=== PATIENT | male | born 1965 | race Caucasian/White ===

== ENCOUNTER 2024-10-03 21:10 | Inpatient (IN) | payer MEDICAID, OTHER ==
[~2024-10-03] VITALS: Ht 172.7 cm; Wt 93.0 kg
[2024-10-04] MEDS ORDERED: CARV3.122 PO (00:55)
[2024-10-04] MEDS ORDERED: IBUP-2314 PO (00:55)
[2024-10-04] MEDS ORDERED: METF-494 PO (00:55)
[2024-10-04] MEDS ORDERED: OLAN10TA73 PO (00:55)
[2024-10-04] MEDS ORDERED: CEPH500T PO (00:55)
[2024-10-04] MEDS ORDERED: PANT40TA2 PO (00:55)
[2024-10-04] MEDS ORDERED: LOPE2TAB25 PO (00:55)
[2024-10-04] MEDS ORDERED: ATOR40TA PO (00:55)
[2024-10-04] MEDS ORDERED: LURA20TA PO (00:55)
[2024-10-04] MEDS ORDERED: LINA5TAB PO (00:55)
[2024-10-04] MEDS ORDERED: DOXY-226 PO (00:55)
[2024-10-04] MEDS ORDERED: FOLI1TAB94 PO (00:55)
[2024-10-04] MEDS ORDERED: FERR220S16 PO (00:55)
[2024-10-04] MEDS ORDERED: CHLO100T17 PO (00:55)
[2024-10-04] MEDS ORDERED: GABA300C PO (00:55)
[2024-10-04] MEDS ORDERED: ESCI-9 PO (00:55)
[2024-10-04] MEDS ORDERED: FURO40TA5 PO (00:55)
[2024-10-04] MEDS ORDERED: CYAN500T9 PO (00:55)
[2024-10-04 00:58] VITALS: BP 153/84; TEMP 98.3; O2SAT 96
[2024-10-04] MEDS ORDERED: LORAZEPAM 1 MG TABLET PO PRN ×3 (01:00→11:45)
[2024-10-04] MEDS ORDERED: MAGNESIUM HYDROXIDE 30 ML LIQUID UDC PO PRN (01:00)
[2024-10-04] MEDS ORDERED: LORAZEPAM 0.5 MG TABLET PO PRN (01:00)
[2024-10-04] MEDS ORDERED: MAG HYDROX/AL HYDROX/SIMETH 30 ML LIQUID UDC PO PRN (01:00)
[2024-10-04] MEDS ORDERED: TEMAZEPAM 7.5 MG CAPSULE PO PRN (01:00)
[2024-10-04] MEDS: TEMAZEPAM 7.5 MG CAPSULE PO PRN (01:19)
[2024-10-04] MEDS: BLOOD SUGAR DIAGNOSTIC 1 EACH STRIP VI ONE (01:19)
[2024-10-04] MEDS ORDERED: INSU100I26 SQ (02:24)
[2024-10-04 08:10] VITALS: BP 145/83; TEMP 98.1; O2SAT 100
[2024-10-04] MEDS ORDERED: CYAN100T44 PO (08:47)
[2024-10-04] MEDS ORDERED: METF-440 PO (08:47)
[2024-10-04] MEDS ORDERED: Medication Not On Formulary EA (Loperamide Hcl (Loperamide) 2 MG) PO SCH (09:30)
[2024-10-04] MEDS ORDERED: Medication Not On Formulary EA (Doxycycline Hyclate 100 MG) PO SCH (09:30)
[2024-10-04] MEDS ORDERED: LOPERAMIDE HCL 2 MG CAPSULE PO PRN (09:45)
[2024-10-04] MEDS: DOXYCYCLINE HYCLATE 100 MG TABLET PO SCH (10:10)
[2024-10-04] MEDS: CEphaleXIN 500 MG CAPSULE PO SCH (10:10)
[2024-10-04] MEDS: GABAPENTIN 300 MG CAPSULE PO SCH (12:20)
[2024-10-04] MEDS: DIVALPROEX 250 MG TABLET.DR PO SCH (12:23)
[2024-10-04 16:04] VITALS: BP 138/71; TEMP 98.6; O2SAT 100
[2024-10-04] MEDS: CARVEDILOL 3.125 MG TABLET PO SCH (16:11)
[2024-10-04] MEDS: FERROUS SULFATE 325 MG TABEC PO SCH (16:11)
[2024-10-04] MEDS: METFORMIN HCL 500 MG TABLET PO SCH (16:12)
[2024-10-04] MEDS ORDERED: Medication Not On Formulary EA (Ferrous Sulfate 325 MG) PO SCH (17:00)
[2024-10-04 20:18] VITALS: BP 131/61; TEMP 98.1; O2SAT 98
[2024-10-04] MEDS: ATORVASTATIN 40 MG TABLET PO SCH (22:06)
[2024-10-04] MEDS: OLANZAPINE 5 MG TABLET PO SCH (22:06)
[2024-10-04] MEDS: INSULIN GLARGINE,HUM 300 UNITS/3 ML CARTRIDGE SQ SCH (22:08)
[2024-10-05] MEDS: PANTOPRAZOLE SODIUM 40 MG TABLET.DR PO SCH (06:41)
[2024-10-05 07:50] VITALS: BP 137/79; TEMP 98.2; O2SAT 99
[2024-10-05] MEDS: FUROSEMIDE 40 MG TABLET PO SCH (08:22)
[2024-10-05] MEDS: FOLIC ACID 1 MG TABLET PO SCH (08:22)
[2024-10-05] MEDS: LINAGLIPTIN 5 MG TABLET PO SCH (08:23)
[2024-10-05] MEDS: CYANOCOBALAMIN 100 MCG TABLET PO SCH (08:23)
[2024-10-05 15:03] VITALS: BP 153/83; TEMP 98; O2SAT 100
[2024-10-05 21:41] VITALS: BP 137/83; TEMP 97.6; O2SAT 100
[2024-10-06 07:55] VITALS: BP 96/57; TEMP 98; O2SAT 99
[2024-10-06 15:12] VITALS: BP 146/77; TEMP 98.8; O2SAT 100
[2024-10-06] MEDS: ACETAMINOPHEN 325 MG TABLET PO PRN (18:36)
[2024-10-06 19:50] VITALS: BP 143/84; TEMP 98.2; O2SAT 98
[2024-10-07 08:10] VITALS: BP 122/67; TEMP 98.2; O2SAT 96
[2024-10-07 16:10] VITALS: BP 117/62; TEMP 98.1; O2SAT 99
[2024-10-07] MEDS: OLANZAPINE 5 MG TABLET PO SCH (21:22)
[2024-10-07 21:23] VITALS: BP 131/70; TEMP 100; O2SAT 100
[2024-10-08 08:28] VITALS: BP 115/60; TEMP 98.8; O2SAT 100
[2024-10-08 16:18] VITALS: BP 107/53; TEMP 99.2; O2SAT 99
[2024-10-08 20:00] VITALS: BP 140/66; TEMP 98.1; O2SAT 100
[2024-10-09 08:22] VITALS: BP 137/75; TEMP 98; O2SAT 96
[2024-10-09 15:21] VITALS: BP 122/58; TEMP 98; O2SAT 99
[2024-10-09 20:04] VITALS: BP 122/67; TEMP 98; O2SAT 99
[2024-10-10 08:00] VITALS: BP 143/75; TEMP 97.6; O2SAT 98
[2024-10-10 16:00] VITALS: BP 148/78; TEMP 97.6; O2SAT 99
[2024-10-10 20:00] VITALS: BP 132/67; TEMP 97.4; O2SAT 99
[2024-10-10] MEDS: DIVALPROEX 250 MG TABLET.DR PO SCH (20:42)
[2024-10-11 08:10] VITALS: BP 140/76; TEMP 98; O2SAT 98
[2024-10-11 16:18] VITALS: BP 138/81; TEMP 98; O2SAT 99
[2024-10-11 19:50] VITALS: BP 128/71; TEMP 97.6; O2SAT 100
[2024-10-12 08:00] VITALS: BP 128/73; TEMP 98.4; O2SAT 99
[2024-10-12 15:22] VITALS: BP 124/65; TEMP 98.4; O2SAT 100
[2024-10-12 19:49] VITALS: BP 129/68; TEMP 98.5; O2SAT 100
[2024-10-12] MEDS: ATORVASTATIN 10 MG TABLET PO SCH (20:52)
[2024-10-13 08:01] VITALS: BP 131/70; TEMP 98.2; O2SAT 98
[2024-10-13 08:11] LABS: BASOPHILS % (AUTO) 0.4 % (0.0-2.0); EOSINOPHILS # (AUTO) 0.1 K/uL (0.0-0.7); EOSINOPHILS % (AUTO) 3.2 % (0.0-7.0); HEMATOCRIT 25.1 % (36.7-47.1); HEMOGLOBIN 8.5 g/dL (12.5-16.3); LYMPHOCYTES # (AUTO) 0.8 K/uL (0.8-4.8); LYMPHOCYTES % (AUTO) 18.8 % (20.5-51.5); MEAN CORPUSCULAR HEMOGLOBIN 29.3 uug (23.8-33.4); MEAN CORPUSCULAR HGB CONC 34 g/dL (32.5-36.3); MEAN CORPUSCULAR VOLUME 86.7 fL (73.0-96.2); MONOCYTES # (AUTO) 0.5 K/uL (0.1-1.30); MONOCYTES % (AUTO) 12.1 % (0.0-11.0); NEUTROPHILS # (AUTO) 2.7 K/uL (1.8-8.9); NEUTROPHILS % (AUTO) 65.5 % (38.5-71.5); PLATELET COUNT (AUTO) 123 K/uL (152-348); RED CELL DISTRIBUTION WIDTH 18.3 % (12.1-16.2); WHITE BLOOD COUNT (AUTO) 4.2 K/uL (3.6-10.2)
[2024-10-13 08:24] LABS: DIFFERENTIAL COMMENT 1
[2024-10-13 08:41] LABS: THYROID STIMULATING HORMONE 7.948 mIU/mL (0.358-3.740)
[2024-10-13 08:55] LABS: ALBUMIN 2.4 g/dL (3.4-5.0); BILIRUBIN,TOTAL 0.2 mg/dL (0.2-1.0); CALCIUM 8.7 mg/dL (8.5-10.1); CREATININE 1.5 mg/dL (0.6-1.3); MAGNESIUM 2.2 mg/dL (1.8-2.4); POTASSIUM 4.4 mmol/L (3.5-5.1); TOTAL PROTEIN, SERUM 5.9 g/dL (6.4-8.2)
[2024-10-13 15:20] VITALS: BP 122/63; TEMP 98.2; O2SAT 98
[2024-10-13 20:00] VITALS: BP 119/65; TEMP 98.1; O2SAT 100
[2024-10-14 08:10] VITALS: BP 129/83; TEMP 98.8; O2SAT 100
[2024-10-14 16:14] VITALS: BP 137/83; TEMP 98.3; O2SAT 100
[2024-10-14 20:02] VITALS: BP 132/67; TEMP 98.2; O2SAT 96
[2024-10-15 08:14] VITALS: BP 134/72; TEMP 98.2; O2SAT 98
[2024-10-15 16:31] VITALS: BP 179/97; TEMP 98.5; O2SAT 100
[2024-10-15 20:08] VITALS: BP 131/63; TEMP 98.2; O2SAT 100
[2024-10-16 07:42] VITALS: BP 127/76; TEMP 98.2; O2SAT 98
[2024-10-16 15:06] VITALS: BP 126/68; TEMP 98; O2SAT 99
[2024-10-16 20:00] VITALS: BP 128/69; TEMP 98; O2SAT 100
[2024-10-16] MEDS: LORAZEPAM 0.5 MG TABLET PO PRN (21:17)
[2024-10-17 08:20] VITALS: BP 140/78; TEMP 98.3; O2SAT 98
[2024-10-17 08:37] LABS: BASOPHILS % (AUTO) 0.6 % (0.0-2.0); EOSINOPHILS # (AUTO) 0.2 K/uL (0.0-0.7); EOSINOPHILS % (AUTO) 3.8 % (0.0-7.0); HEMATOCRIT 25.3 % (36.7-47.1); HEMOGLOBIN 8.5 g/dL (12.5-16.3); LYMPHOCYTES % (AUTO) 22.8 % (20.5-51.5); MEAN CORPUSCULAR HEMOGLOBIN 29.2 uug (23.8-33.4); MEAN CORPUSCULAR HGB CONC 33 g/dL (32.5-36.3); MEAN CORPUSCULAR VOLUME 87.2 fL (73.0-96.2); MONOCYTES # (AUTO) 0.5 K/uL (0.1-1.30); MONOCYTES % (AUTO) 12.8 % (0.0-11.0); NEUTROPHILS # (AUTO) 2.5 K/uL (1.8-8.9); PLATELET COUNT (AUTO) 110 K/uL (152-348); RED CELL DISTRIBUTION WIDTH 18.2 % (12.1-16.2); WHITE BLOOD COUNT (AUTO) 4.2 K/uL (3.6-10.2)
[2024-10-17 08:46] LABS: DIFFERENTIAL COMMENT 1
[2024-10-17 09:18] LABS: ALBUMIN 2.3 g/dL (3.4-5.0); BILIRUBIN,TOTAL 0.2 mg/dL (0.2-1.0); CALCIUM 8.2 mg/dL (8.5-10.1); CREATININE 1.3 mg/dL (0.6-1.3); MAGNESIUM 2.3 mg/dL (1.8-2.4); PHOSPHOROUS 4.4 mg/dL (2.5-4.9); TOTAL PROTEIN, SERUM 5.7 g/dL (6.4-8.2)
[2024-10-17 16:26] VITALS: BP 150/73; TEMP 98.5; O2SAT 98
[2024-10-17 20:00] VITALS: BP 176/92; TEMP 100.1; O2SAT 98
[2024-10-18 08:26] VITALS: BP 122/63; TEMP 97.7; O2SAT 97
[2024-10-18 08:49] VITALS: BP 122/65
[2024-10-18 19:06] LABS: PTH, INTACT 14 pg/mL (15-65)
== END 2024-10-18 16:00 | DRG 750 ==
LOC: GPS 23:53
PROVIDERS: ADMIT Psychiatry & Neurology Psychosomatic Medicine; ATTEND Internal Medicine
DX: F25.0 Schizoaffective disorder, bipolar type (principal); N17.9 Acute kidney failure, unspecified; R45.851 Suicidal ideations; D63.8 Anemia in other chronic diseases classified elsewhere; I50.9 Heart failure, unspecified; I11.0 Hypertensive heart disease with heart failure; E11.9 Type 2 diabetes mellitus without complications; F10.11 Alcohol abuse, in remission; F14.11 Cocaine abuse, in remission; E78.5 Hyperlipidemia, unspecified; K21.9 Gastro-esophageal reflux disease without esophagitis; Z91.011 Allergy to milk products; I25.10 Atherosclerotic heart disease of native coronary artery without angina pectoris; M79.2 Neuralgia and neuritis, unspecified; K29.70 Gastritis, unspecified, without bleeding; Z79.899 Other long term (current) drug therapy; Z79.84 Long term (current) use of oral hypoglycemic drugs; Z91.51 Personal history of suicidal behavior; R94.6 Abnormal results of thyroid function studies
CPT/HCPCS: 36415; 71045; 76770; 80164; 83550; 83735; 83970; 84100; 84155; 84165; 84443; 84480; 85025; J1815; J3490